=== PATIENT | female | born 1985 | race Caucasian/White ===

== ENCOUNTER → 2018-04-04 | Outpatient (CLI) | payer MEDICARE, MEDICAID ==
--- NOTE | 2018-04-04 13:05 | Diagnostic Imaging Report ---
PROCEDURE: CT head without contrast. TECHNIQUE: Multiple contiguous axial images were obtained through the brain without the use of intravenous contrast. INDICATION: Headache and nausea. COMPARISON: No prior studies are available for comparison. FINDINGS: Ventricles and sulci are within normal limits. No sulcal effacement, midline shift or hemorrhage is detected. Cisterns are patent. Visualized paranasal sinuses are clear. IMPRESSION: No acute intracranial process is detected. Dictated by: Dictated on workstation # [id number]
== END ==
LOC: RAD 11:38
PROVIDERS: ATTEND Internal Medicine
DX: R51 Headache (principal); R11.0 Nausea
CPT/HCPCS: 70450